=== PATIENT | male | born 1970 | race Caucasian/White ===

== ENCOUNTER 2018-02-06 08:11 | Inpatient (IN) | payer OTHER ==
[~2018-02-06] VITALS: Ht 182.8 cm; Wt 106.1 kg
--- NOTE | ~2018-02-06 | EKG ---
[place], [place] ELECTROCARDIOGRAM REPORT NAME: GARIMA ROSA UNIT #: [id number] ROOM: 401 DOCTOR: NEETA DRAFT REPORT BIRTHDATE: [birth year] [facility] Test Date: 2018-02-06 Test Time: 12:24:27 Pat Name: GARIMA ROSA Department: Room: 401 1 Gender: M Director Of Flight Operations: KRISTAN : 1970 Requested By: MARGA CHIRINOS Order Number: [id number] Reading MD: Anais Schilling MD Measurements Intervals [place] Rate: 86 P: 47 TX: 134 QRS: 52 QRSD: 93 T: 27 QT: 356 QTc: 426 Interpretive Statements Sinus rhythm Non-specific ST-T changes. Electronically Signed On 02-10-2018 11:07:32 PDT by Anais Schilling MD CM:EKGRPT:ELECTROCARDIOGRAM REPORT [id number] MARGA PRETTY DRAFT REPORT MARGA CHIRINOS DO
[~2018-02-06 08:11] MED LIST: ATARAX,VISTARIL50 MG PO; CARBIDOPA/LEVOD1 TA1 PO; PRILOSEC20 M1 PO; ZOFRAN 4 MG ED2 TAB PO
[2018-02-06 09:55] VITALS: BP 146/82
[2018-02-06 10:50] LABS: BASO % 0.6 % (0.0-1.0); EOS # 0.1 10*3/uL (0.0-0.4); EOS % 1.5 % (1.0-4.0); HEMATOCRIT 43.8 % (42.0-52.0); HEMOGLOBIN 14.2 g/dl (14.0-18.0); LYMPH # 2.1 10*3/uL (1.3-4.4); LYMPH % 29.7 % (27.0-41.0); MEAN CELL VOLUME 86.6 fl (80.0-94.0); MEAN CORPUSCULAR HGB 28.1 pg (27.0-31.0); MEAN CORPUSCULAR HGB CONC 32.4 g/dl (33.0-37.0); MEAN PLATELET VOLUME 9.9 fl (9.6-12.3); MONO # 0.7 10*3/uL (0.1-1.0); MONO % 9.4 % (3.0-9.0); NEUT # 4.2 10*3/uL (2.3-7.9); NEUT % 58.7 % (47.0-73.0); PLATELET COUNT AUTOMATED 255 10*3/uL (130-400); RED BLOOD COUNT 5.06 10*6/uL (4.50-5.90); RED CELL DISTRI WIDTH 13.8 % (0-14.5); WHITE BLOOD COUNT 7.1 10*3/uL (4.8-10.8)
[2018-02-06 11:03] LABS: ALBUMIN 3.2 gm/dl (3.1-4.5); ALKALINE PHOSPHATASE 85 U/L (45-117); BUN 8 mg/dl (7-24); CHLORIDE 104 mmol/L (98-107); CREATININE 0.68 mg/dL (0.70-1.30); POTASSIUM 4.2 mmol/L (3.5-5.1); SGOT/AST 45 IU/L (3-35); SGPT/ALT 81 U/L (12-78); SODIUM 137 mmol/L (136-145); TOTAL PROTEIN 7.4 gm/dL (6.4-8.2)
[2018-02-06 11:04] LABS: ETHYL ALCOHOL < 3.0 mg/dl (<3)
[2018-02-06 11:24] LABS: BILIRUBIN NEGATIVE (NEGATIVE); BLOOD NEGATIVE (NEGATIVE); CLARITY CLEAR (CLEAR); COLOR YELLOW (YELLOW); GLUCOSE NEGATIVE (NEGATIVE); KETONE NEGATIVE (NEGATIVE); LEUKO ESTERASE NEGATIVE (NEGATIVE); NITRITE NEGATIVE (NEGATIVE); UROBILINOGEN 0.2 E.U./dl (0.2-1.0)
[2018-02-06 11:33] LABS: URINE AMPHETAMINES < 1000 (1000ng/ml); URINE BARBITURATES < 200 (200ng/ml); URINE BENZODIAZEPINES < 200 (200ng/ml); URINE CANNABINOIDS (THC) < 50 (50ng/ml); URINE COCAINE < 300 (300ng/ml); URINE METHADONE < 300 (300ng/ml); URINE OPIATES < 300 (300ng/ml)
[2018-02-06 11:36] LABS: BACTERIA TRACE; EPITHELIAL CELLS 0-2; RBC 0-2 rbc/hpf (0-2); URINE PHENCYCLIDINE < 25 (25ng/ml); WBC 0-2 wbc/hpf (0-5)
[2018-02-06 16:00] VITALS: BP 150/78
[2018-02-07] VITALS: BP 151/88
[2018-02-07 08:00] VITALS: BP 122/72
[2018-02-07 16:00] VITALS: BP 143/80
[2018-02-07 20:00] VITALS: BP 153/86
[2018-02-08] VITALS: BP 137/82
[2018-02-08] MEDS ORDERED: NATURE'S BLEND F1 MG PO (09:36)
[2018-02-08] MEDS ORDERED: KEFLEX 500 MG E2 CAP PO (09:36)
[2018-02-08] MEDS ORDERED: NATURE'S BLEND100 M2 PO (09:36)
[2018-02-08] MEDS ORDERED: SEPTDS PO (09:36)
[2018-02-08] MEDS ORDERED: MOTRIN 600 MG E4 TAB PO (09:36)
[2018-02-08] MEDS ORDERED: ATARAX,VISTARIL50 MG PO (09:36)
[2018-02-08] MEDS ORDERED: METHOCARBAMOL750 M1 PO (09:36)
[2018-02-08 12:00] VITALS: BP 143/81
[2018-02-08 16:00] VITALS: BP 148/86
== END 2018-02-08 20:09 | disposition left against medical advice (07) | DRG 603 ==
LOC: 4E 08:11
PROVIDERS: Internal Medicine
DX: L03.116 Cellulitis of left lower limb (principal); F11.23 Opioid dependence with withdrawal; L02.416 Cutaneous abscess of left lower limb; F14.10 Cocaine abuse, uncomplicated; F13.10 Sedative, hypnotic or anxiolytic abuse, uncomplicated; R56.9 Unspecified convulsions; K21.9 Gastro-esophageal reflux disease without esophagitis; F43.10 Post-traumatic stress disorder, unspecified; F41.9 Anxiety disorder, unspecified; F32.9 Major depressive disorder, single episode, unspecified; B18.2 Chronic viral hepatitis C; E66.09 Other obesity due to excess calories; Z72.0 Tobacco use; Z68.31 Body mass index [BMI] 31.0-31.9, adult; Z86.19 Personal history of other infectious and parasitic diseases; Z79.899 Other long term (current) drug therapy; Z84.89 Family history of other specified conditions